=== PATIENT | male | born 1955 | race Caucasian/White ===

== ENCOUNTER → 2018-06-09 | Outpatient (CLI) | payer MEDICARE, BC ==
--- NOTE | 2018-06-09 15:00 | XR ---
Left elbow HISTORY: Left elbow pain and swelling 3 views of the left elbow Soft tissue swelling is noted at the dorsal aspect of the elbow, there is an enthesophyte at the inse rtion of the triceps tendon. Alignment and bone mineralization are normal. No fracture or dislocation . No sizable joint effusion. IMPRESSION: Correlate for olecranon bursitis.
== END | disposition home or self-care (01) ==
LOC: RADXRMAIN 10:51
PROVIDERS: ATTEND Midwife
DX: M25.522 Pain in left elbow (principal)

== ENCOUNTER → 2022-12-05 | Outpatient (CLI) | payer BC, MEDICARE ==
--- NOTE | 2022-12-05 12:50 | XR ---
EXAMINATION TYPE: XR finger RT DATE OF EXAM: 12/05/2022 COMPARISON: NONE HISTORY: Pain TECHNIQUE: Three views are submitted. FINDINGS: The osseous structures are intact. The joint spaces are preserved and there is no acute fracture or dislocation. IMPRESSION: 1. No definite acute fracture or dislocation if symptoms persist, follow-up study in 7 to 10 days wo uld be suggested
== END | disposition home or self-care (01) ==
LOC: RADXRMAIN 11:51
PROVIDERS: ATTEND Family Medicine
DX: M79.644 Pain in right finger(s) (principal)

== ENCOUNTER 2023-09-04 10:43 | Observation (INO) | payer MEDICARE ==
[2023-09-04] MEDS ORDERED: NITROGLYCERIN SL TABS 0.4 MG TAB SUBLINGUAL PRN ×2 (11:37→13:17)
--- NOTE | 2023-09-04 11:37 | ED ---
General Adult HPI - General Chief complaint: Recheck/Abnormal Lab/Rx Stated complaint: dr david tracking Time Seen by Provider: 09/04/23 10:45 Source: patient, RN notes reviewed, old records reviewed Limitations: no limitations - History of Present Illness Initial comments: This is a 67-year-old male who presents to the emergency department from the stress lab. Patient had a positive stress test and Dr. Burt to cardiology sent the patient to the emergency department immediately. Patient states during the test he had a little bit of chest discomfort but he currently has no chest discomfort no shortness of breath no diaphoretic episodes. Patient denies nausea vomiting. Patient is a diabetic with high cholesterol. Patient does not smoke and has no family history that he knows of. Patient denies any recent fever chills or cough. - Related Data Home Medications Medication Instructions Recorded Confirmed Atorvastatin [Lipitor] 10 mg PO DAILY 08/10/15 08/15/15 Cholecalciferol [Vitamin D3] 2,000 unit PO QAM 08/10/15 08/15/15 Cinnamon Bark [Cinnamon] 500 mg PO DAILY 08/10/15 08/15/15 Empagliflozin/Linagliptin 1 each PO QAM 08/10/15 08/15/15 [Glyxambi 25 mg-5 mg Tablet] Levothyroxine Sodium [Synthroid] 75 mcg PO DAILY 08/10/15 08/15/15 Multivitamins, Thera [Multivitamin] 1 tab PO DAILY 08/10/15 08/15/15 metFORMIN HCL [Glucophage] 500 mg PO BID 08/10/15 08/15/15 Allergies Allergy/AdvReac Type Severity Reaction Status Date / Time No Known Allergies Allergy Verified 09/04/23 10:53 Review of Systems ROS Statement: Those systems with pertinent positive or pertinent negative responses have been documented in the HPI. ROS Other: All systems not noted in ROS Statement are negative. Past Medical History Past Medical History: Diabetes Mellitus, Hyperlipidemia, Skin Disorder, Thyroid Disorder Additional Past Medical History / Comment(s): "dry skin" History of Any Multi-Drug Resistant Organisms: MRSA Date of last positivie culture/infection: ?2004 MDRO Source:: rt side of abdomen Past Surgical History: Cholecystectomy Additional Past Surgical History / Comment(s): cyst removed from side of abdomen, nasal surgery Past Anesthesia/Blood Transfusion Reactions: Postoperative Nausea & Vomiting (PONV) Additional Past Anesthesia/Blood Transfusion Reaction / Comment(s): ponv after last colonscopy Past Psychological History: No Psychological Hx Reported Smoking Status: Never smoker Past Alcohol Use History: Occasional Past Drug Use History: None Reported - Past Family History Mother Family Medical History: Cancer Father Family Medical History: Cancer General Exam - General Exam Comments Initial Comments: GENERAL: Patient is well-developed and well-nourished. Patient is nontoxic and well- hydrated and is in no acute distress. ENT: Neck is soft and supple. No significant lymphadenopathy is noted. Oropharynx is clear. Moist mucous membranes. Neck has full range of motion without eliciting any pain. EYES: The sclera were anicteric and conjunctiva were pink and moist. Extraocular movements were intact and pupils were equal round and reactive to light. Eyelids were unremarkable. PULMONARY: Unlabored respirations. Good breath sounds bilaterally. No audible rales rhonchi or wheezing was noted. CARDIOVASCULAR: There is a regular rate and rhythm without any murmurs gallops or rubs. ABDOMEN: Soft and nontender with normal bowel sounds. SKIN: Skin is clear with no lesions or rashes and otherwise unremarkable. NEUROLOGIC: Patient is alert and oriented x3. Cranial nerves II through XII are grossly intact. Motor and sensory are also intact. Normal speech, volume and content. Symmetrical smile. MUSCULOSKELETAL: Normal extremities with adequate strength and full range of motion. LYMPHATICS: No significant lymphadenopathy is noted PSYCHIATRIC: Normal psychiatric evaluation. Limitations: no limitations Course Vital Signs 09/04/23 10:51 Temperature 98 F Pulse Rate 74 Respiratory 18 Rate Blood Pressure 143/80 O2 Sat by Pulse 100 Oximetry Medical Decision Making - Medical Decision Making EKG is interpreted by myself. EKG shows sinus rhythm at 76 bpm parables 185 QRS is 109 QT interval 382 QTc is 412. Patient EKG shows no ST segment ovation or depression. Was pt. sent in by a medical professional or institution (, PA, HEAD KILN OPERATOR, urgent care, hospital, or prison...) When possible be specific @ -Patient was sent to the emergency department Dr. Burt Did you speak to anyone other than the patient for history (EMS, parent, family, police, friend...)? What history was obtained from this source @ -I spoke with Dr. Burt nurse practitioner. Did you review nursing and triage notes (agree or disagree)? Why? @ -I reviewed and agree with nursing and triage notes Were old charts reviewed (outside hosp., previous admission, EMS record, old EKG, old radiological studies, urgent care reports/EKG's, prison records)? Report findings @ -I reviewed prior EKGs prior lab work and prior radiological studies Differential Diagnosis (chest pain, altered mental status, abdominal pain women, abdominal pain men, vaginal bleeding, weakness, fever, dyspnea, syncope, headache, dizziness, GI bleed, back pain, seizure, CVA, palpatations, mental health, musculoskeletal)? @ -Differential Chest Pain: Stable Angina, Unstable Angina, STEMI, NSTEMI Aortic Dissection, Pneumothorax, Musculoskeletal, Esophageal Spasm GERD, Cholecystitis, Pancreatitis, Zoster, this is not meant to be an all-inclusive list. EKG interpreted by me (3pts min.). @ -As above X-rays interpreted by me (1pt min.). @ -Chest x-ray shows no acute abnormality CT interpreted by me (1pt min.). @ -None done U/S interpreted by me (1pt. min.). @ -None done What testing was considered but not performed or refused? (CT, X-rays, U/S, l abs)? Why? @ -None What meds were considered but not given or refused? Why? @ -None Did you discuss the management of the patient with other professionals (professionals i.e. , PA, HEAD KILN OPERATOR, lab, RT, psych nurse, social sciences instructor, divorce attorney, teacher, protocol officer, rn case management)? Give summary @ -Dr. Gallardo was contacted and he agreed to admit the patient. Was smoking cessation discussed for >3mins.? @ -No Was critical care preformed (if so, how long)? @ -No Were there social determinants of health that impacted care today? How? (Homelessness, low income, unemployed, alcoholism, drug addiction, transporta tion, low edu. Level, literacy, decrease access to med. care, half-way, rehab)? @ -No Was there de-escalation of care discussed even if they declined (Discuss DNR or withdrawal of care, Hospice)? DNR status @ -No What co-morbidities impacted this encounter? (DM, HTN, Smoking, COPD, CAD, Cancer, CVA, ARF, Chemo, Hep., AIDS, mental health diagnosis, sleep apnea, morbid obesity)? @ -None Was patient admitted / discharged? Hospital course, mention meds given and route, prescriptions, significant lab abnormalities, going to OR and other pertinent info. @ -Patient received aspirin Nitropaste in the emergency department. Patient was also started on heparin. Patient will be admitted to Dr. Littlejohn and cardiology will be consulted Undiagnosed new problem with uncertain prognosis? @ -No Drug Therapy requiring intensive monitoring for toxicity (Heparin, Nitro, Insulin, Cardizem)? @ -No Were any procedures done? @ -No Diagnosis/symptom? @ -Unstable angina Acute, or Chronic, or Acute on Chronic? @ -Acute Uncomplicated (without systemic symptoms) or Complicated (systemic symptoms)? @ -Complicated Side effects of treatment? @ -No Exacerbation, Progression, or Severe Exacerbation? @ -No Poses a threat to life or bodily function? How? (Chest pain, USA, CT, pneumonia, PE, COPD, DKA, ARF, appy, cholecystitis, CVA, Diverticulitis, Homicidal, Suicidal, threat to staff... and all critical care pts) @ -Yes this could lead to an CT and cause end organ dysfunction Disposition Clinical Impression: Unstable angina Disposition: ADMITTED IP TO THIS HOSP Referrals: Domenic Burt DO [STAFF PHYSICIAN] - 1-2 days Time of Disposition: 11:34
[2023-09-04] MEDS: HEPARIN SODIUM 1,000 UN/ML (10ML VL) IV ONE (11:49)
--- NOTE | 2023-09-04 11:50 | XR ---
EXAMINATION TYPE: XR chest 2V DATE OF EXAM: 09/04/2023 11:45 AM CLINICAL INDICATION:Male, 67 years old with history of Chest Pain; [facility] COMPARISON: Chest radiographs from 09/04/2023. TECHNIQUE: XR chest 2V Frontal and lateral views of the chest. FINDINGS: Lungs/Pleura: There is no evidence of pleural effusion, focal consolidation, or pneumothorax. Pulmonary vascularity: Unremarkable. Heart/mediastinum: Cardiomediastinal silhouette is unremarkable. Musculoskeletal: No acute osseous pathology. IMPRESSION: No acute cardiopulmonary disease/process.
[2023-09-04] MEDS: ASPIRIN 81 MG PO STA (11:53)
[2023-09-04] MEDS: NITROGLYCERIN OINT 1 INCH/GM PACKET TOPICAL STA (11:54)
[2023-09-04] MEDS: HEPARIN SOD,PORK IN 0.45% NACL 25,000 UNIT in 0.45% NACL 1 250ML.BAG IV SCH (11:57)
[2023-09-04 12:26] LABS: Basophils # (A) 0.1 k/uL (0-0.2); Basophils % (A) 1 %; Eosinophils # (A) 0.7 k/uL (0-0.7); Eosinophils % (A) 7 %; HCT 48.5 % (39.0-53.0); Lymphocytes # (A) 2.5 k/uL (1.0-4.8); Lymphocytes % (A) 26 %; MCH 30.9 pg (25.0-35.0); MCHC 33.1 g/dL (31.0-37.0); MCV 93.4 fL (80.0-100.0); Mean Platelet Volume 9.2; Monocytes # (A) 0.6 k/uL (0-1.0); Monocytes % (A) 6 %; Neutrophils # (A) 5.8 k/uL (1.3-7.7); Neutrophils % (A) 59 %; Platelet Count 267 k/uL (150-450); RBC 5.19 m/uL (4.30-5.90); RDW 12.4 % (11.5-15.5); WBC 9.8 k/uL (3.8-10.6)
[2023-09-04 12:34] LABS: ALT 38 U/L (4-49); AST 32 U/L (17-59); African American GFR (CKD) >90 (>60 ml/min/1.73 sqM); Albumin 4.5 g/dL (3.5-5.0); Alkaline Phosphatase 64 U/L (38-126); Anion Gap 10 mmol/L; Blood Urea Nitrogen 18 mg/dL (9-20); Calcium 9.6 mg/dL (8.4-10.2); Carbon Dioxide 25 mmol/L (22-30); Chloride 107 mmol/L (98-107); Glucose 139 mg/dL (74-99); Magnesium 1.8 mg/dL (1.6-2.3); Non-African American GFR(CKD) 81 (>60 ml/min/1.73 sqM); Potassium 4.9 mmol/L (3.5-5.1); Sodium 142 mmol/L (137-145); Total Bilirubin 0.5 mg/dL (0.2-1.3); Total Protein 7.5 g/dL (6.3-8.2)
[2023-09-04 12:51] LABS: INR 0.9 (<1.2); Prothrombin Time 10.4 sec (10.0-12.5)
[2023-09-04] MEDS ORDERED: DEXTROSE 50% SYRINGE 50 ML IVP PRN ×2 (12:53)
--- NOTE | 2023-09-04 12:55 | P.HPIM ---
History of Present Illness H&P Date: 09/04/23 History of present illness; patient is 67-year-old gentleman with past medical significant for hyperlipidemia, diabetes mellitus presented to the ER after being sent in for an abnormal stress test. Apparently patient was all right 2 weeks ago when while shoveling snow he started experiencing chest pain that was central in location, nonradiating, no aggravating or relieving factors associated with chest pain. There was no complaint of palpitation at the time. Patient did complain of shortness of breath at that time. There was no complaint nausea, vomiting abdominal pain at that time. Chest pain resolved on its own. Chest pain reoccurred after a few days while he was removing trash cans, this chest pain also resolved on its own. Yesterday patient went for his annual physical to his PCP office and he ordered an EKG and a stress test. This morning patient went for a stress test and while he was doing stress test there were some ischemic changes noticeable for which the distance learning technician referred him immediately to come to the ER and to be admitted. Initial lab work done in the ER showed WBC 9.8, hemoglobin 16, platelet count 267, sodium 142, calcium 4.9, BUN 18, creatinine 0.98, AST 32, ALT 38, troponin 0.012 EKG done in the ER showed heart rate of76 , no ST segment elevation or d epression seen, no T-wave inversions seen. Chest x-ray done in the ER no acute cardiopulmonary process Patient admitted to internal medicine service REVIEW OF SYSTEMS: CONSTITUTIONAL: No fever, no malaise, no fatigue. HEENT: No recent visual problems or hearing problems. Denied any sore throat. CARDIOVASCULAR: As mentioned above PULMONARY: As mentioned above GASTROINTESTINAL: No diarrhea, no nausea, no vomiting, no abdominal pain. NEUROLOGICAL: No headaches, no weakness, no numbness. HEMATOLOGICAL: Denies any bleeding or petechiae. GENITOURINARY: Denies any burning micturition, frequency, or urgency. MUSCULOSKELETAL/RHEUMATOLOGICAL: Denies any joint pain, swelling, or any muscle pain. ENDOCRINE: Denies any polyuria or polydipsia. The rest of the 14-point review of systems is negative. PHYSICAL EXAMINATION: GENERAL: The patient is alert and oriented x3, not in any acute distress. Well developed, well nourished. HEENT: Pupils are round and equally reacting to light. EOMI. No scleral icterus. No conjunctival pallor. Normocephalic, atraumatic. No pharyngeal erythema. No thyromegaly. CARDIOVASCULAR: S1 and S2 present. No murmurs, rubs, or gallops. PULMONARY: Chest is clear to auscultation, no wheezing or crackles. ABDOMEN: Soft, nontender, nondistended, normoactive bowel sounds. No palpable organomegaly. MUSCULOSKELETAL: No joint swelling or deformity. EXTREMITIES: No cyanosis, clubbing, or pedal edema. NEUROLOGICAL: Gross neurological examination did not reveal any focal deficits. SKIN: No rashes. Assessment and plan Acute coronary syndrome Abnormal stress test Diabetes mellitus Hyperlipidemia Hypothyroidism Monitor vital signs Monitor CBC Monitor CMP Continue telemetry monitoring Trend troponin Ordered 2D echo Start pharmacy to dose heparin Continue aspirin Resume Synthroid Monitor blood sugar levels, continue sliding scale insulin Cardiology consulted Labs and medication were reviewed.. Continue same treatment. Continue with symptomatic treatment. Resume home medication. Monitor labs and vitals. DVT and GI prophylaxis. Further recommendations as per clinical course of the patient Dictation was produced using [employer] dictation software. please excuse any grammatical, word or spelling errors. Past Medical History Past Medical History: Diabetes Mellitus, Hyperlipidemia, Skin Disorder, Thyroid Disorder Additional Past Medical History / Comment(s): "dry skin" History of Any Multi-Drug Resistant Organisms: MRSA Date of last positivie culture/infection: ?2004 MDRO Source:: rt side of abdomen Past Surgical History: Cholecystectomy Additional Past Surgical History / Comment(s): cyst removed from side of abdomen, nasal surgery Past Anesthesia/Blood Transfusion Reactions: Postoperative Nausea & Vomiting (PONV) Additional Past Anesthesia/Blood Transfusion Reaction / Comment(s): ponv after last colonscopy Past Psychological History: No Psychological Hx Reported Smoking Status: Never smoker Past Alcohol Use History: Occasional Past Drug Use History: None Reported - Past Family History Mother Family Medical History: Cancer Father Family Medical History: Cancer Medications and Allergies Home Medications Medication Instructions Recorded Confirmed Type Atorvastatin [Lipitor] 10 mg PO DAILY 08/10/15 09/04/23 History Levothyroxine Sodium [Synthroid] 75 mcg PO DAILY 08/10/15 09/04/23 History Empagliflozin [Jardiance] 25 mg PO DAILY 09/04/23 09/04/23 History Gabapentin [Neurontin] 100 mg PO BID 09/04/23 09/04/23 History Glimepiride [Amaryl] 1 mg PO BID 09/04/23 09/04/23 History Nitroglycerin Sl Tabs [Nitrostat] 0.4 mg SL Q5M PRN 09/04/23 09/04/23 History metFORMIN HCL 1,000 mg PO BID 09/04/23 09/04/23 History Allergies Allergy/AdvReac Type Severity Reaction Status Date / Time No Known Allergies Allergy Verified 09/04/23 12:34 Physical Exam Vitals: Vital Signs Temp Pulse Resp BP Pulse Ox 09/04/23 10:51 98 F 74 18 143/80 100 Intake and Output 09/03/23 09/04/23 09/04/23 22:59 06:59 14:59 Other: Weight 87.543 kg Results CBC & Chem 7: 09/04/23 11:10 09/04/23 11:10 Labs: Abnormal Lab Results - Last 24 Hours (Table) 09/04/23 Range/Units 11:10 Glucose 139 H (74-99) mg/dL
[2023-09-04] MEDS ORDERED: ALPRAZolam 0.5 MG TAB PO PRN (13:17)
[2023-09-04] MEDS ORDERED: ALPRAZolam 0.25 MG TAB PO PRN (13:17)
--- NOTE | 2023-09-04 13:17 | P.CRDCN ---
History of Present Illness History of present illness: HISTORY OF PRESENT ILLNESS: This is a 67-year-old male with a past medical history significant for hypothyroidism, hyperlipidemia and diabetes. Patient does not follow with a asbestos textile supervisor. We have been asked to see the patient in consultation for unstable angina. Patient examined at the bedside. Patient was scheduled for an outpatient stress echocardiogram today. Patient states a few weeks ago he was using a snowblower to remove snow from his neighbor's house when he began to have chest discomfort. He states that he went home and rested and had resolution of his pain. He states a few days ago he was at one of his properties and he was doing some work like pulling some weeds and he began to have chest discomfort again. He states the pain was relieved with rest. He denied having any radiation of the pain. He does report mild shortness of breath and nausea with the discomfort. Patient presented this morning and underwent stress echocardiogram revealing inducible anterior ischemia as well as ST elevation in aVR. The patient did also experience chest discomfort with activity that was relieved with rest. His EKG abnormalities did resolve in the recovery phase. He was directed to the emergency room. The patient currently denies any chest pain or pressure. He denies any shortness of breath. He is a non-smoker. He denies any family history of coronary artery disease. DIAGNOSTICS: - EKG reveals sinus mechanism with no signs of acute ischemia - Chest xray negative for acute process - Laboratory data: WBC 9.8. Hemoglobin 16.0. Platelet count 267. Sodium 142. Potassium 4.9. BUN 18. Creatinine 0.98. Magnesium 1.8. - Current home cardiac medications include Lipitor 10 mg daily. REVIEW OF SYSTEMS: At the time of my exam: CONSTITUTIONAL: Denies fever or chills. HEENT: Denies blurred vision, vision changes, or eye pain. Denies hemoptysis CARDIOVASCULAR: Denies chest pain. Denies orthopnea. Denies PND. Denies palpitations RESPIRATORY: Denies shortness of breath. GASTROINTESTINAL: Denies abdominal pain. Denies nausea or vomiting. HEMATOLOGIC: Denies bleeding disorders. GENITOURINARY: Denies any blood in urine. SKIN: Denies pruitis. Denies rash. PHYSICAL EXAM: VITAL SIGNS: Reviewed. GENERAL: Well-developed in no acute distress. HEENT: Head is normocephalic. Pupils are equal, round. Sclerae anicteric. Mucous membranes of the mouth are moist. Neck supple. No JVD or thyromegaly LUNGS: Respirations even and unlabored. Lungs essentially clear to auscultation bilaterally. HEART: Regular rate and rhythm. S1 and S2 heard. ABDOMEN: Soft. Nondistended. Nontender. EXTREMITIES: Normal range of motion. No clubbing or cyanosis. Peripheral pulses intact. No lower extremity edema NEUROLOGIC: Awake and alert. Oriented x 3. ASSESSMENT: Exertional chest pain x 1 month Abnormal stress echocardiogram revealing inducible anterior ischemia as well as ST elevation in aVR Hyperlipidemia Diabetes Hypothyroidism PLAN: Obtain 2D echo to assess cardiac structure and function Begin aspirin 81 mg daily Increase atorvastatin to 40 mg at night Begin metoprolol tartrate 25 mg twice a day N.p.o. at midnight Patient to undergo cardiac catheterization tomorrow with Dr. Burt Plan discussed in detail with patient and his at the bedside. All questions answered. Further recommendations pending patient course Nurse practitioner note has been reviewed by physician. Signing provider agrees with the documented findings, assessment, and plan of care documented by HEALTH PLAN SPECIALIST as a scribe. Past Medical History Past Medical History: Diabetes Mellitus, Hyperlipidemia, Skin Disorder, Thyroid Disorder Additional Past Medical History / Comment(s): "dry skin" History of Any Multi-Drug Resistant Organisms: MRSA Date of last positivie culture/infection: ?2004 MDRO Source:: rt side of abdomen Past Surgical History: Cholecystectomy Additional Past Surgical History / Comment(s): cyst removed from side of abdomen, nasal surgery Past Anesthesia/Blood Transfusion Reactions: Postoperative Nausea & Vomiting (PONV) Additional Past Anesthesia/Blood Transfusion Reaction / Comment(s): ponv after last colonscopy Past Psychological History: No Psychological Hx Reported Smoking Status: Never smoker Past Alcohol Use History: Occasional Past Drug Use History: None Reported - Past Family History Mother Family Medical History: Cancer Father Family Medical History: Cancer Medications and Allergies Home Medications Medication Instructions Recorded Confirmed Type Atorvastatin [Lipitor] 10 mg PO DAILY 08/10/15 09/04/23 History Levothyroxine Sodium [Synthroid] 75 mcg PO DAILY 08/10/15 09/04/23 History Empagliflozin [Jardiance] 25 mg PO DAILY 09/04/23 09/04/23 History Gabapentin [Neurontin] 100 mg PO BID 09/04/23 09/04/23 History Glimepiride [Amaryl] 1 mg PO BID 09/04/23 09/04/23 History Nitroglycerin Sl Tabs [Nitrostat] 0.4 mg SL Q5M PRN 09/04/23 09/04/23 History metFORMIN HCL 1,000 mg PO BID 09/04/23 09/04/23 History Allergies Allergy/AdvReac Type Severity Reaction Status Date / Time No Known Allergies Allergy Verified 09/04/23 12:34 Physical Exam Vitals: Vital Signs Temp Pulse Resp BP Pulse Ox 09/04/23 10:51 98 F 74 18 143/80 100 Intake and Output 09/03/23 09/04/23 09/04/23 22:59 06:59 14:59 Other: Weight 87.543 kg Results 09/04/23 11:10 09/04/23 11:10 CBC 09/04/23 Range/Units 11:10 WBC 9.8 (3.8-10.6) k/uL RBC 5.19 (4.30-5.90) m/uL Hgb 16.0 (13.0-17.5) gm/dL Hct 48.5 (39.0-53.0) % Plt Count 267 (150-450) k/uL Current Medications Generic Name Dose Route Start Last Admin Trade Name Freq PRN Reason Stop Dose Admin Aspirin 325 mg 09/05/23 09:00 Aspirin 325 Mg Tab PO DAILY ADOLFO Heparin Sodium/Sodium Chloride 250 mls @ 9.98 mls/hr 09/04/23 11:45 09/04/23 11:57 25,000 unit/ Sodium Chloride IV 11.4 units/kg/hr .Q24H ADOLFO 9.98 mls/hr Administration Protocol 11.4 UNITS/KG/HR Nitroglycerin 0.4 mg 09/04/23 11:37 Nitroglycerin Sl Tabs 0.4 Mg Tab SUBLINGUAL Q5M PRN Chest Pain Intake and Output 09/03/23 09/04/23 09/04/23 22:59 06:59 14:59 Other: Weight 87.543 kg Patient Weight 09/05/23 06:59 Weight 87.543 kg 09/04/23 11:10
[2023-09-04 14:12] LABS: Glucose,Whole Blood 122 mg/dL (70-110)
[2023-09-04 17:10] LABS: Glucose,Whole Blood 108 mg/dL (70-110)
[2023-09-04] MEDS: INSULIN ASPART (NovoLOG) 100 UNIT/ML VIAL SQ SCH (17:14)
[2023-09-04] MEDS: HEPARIN SODIUM 1,000 UN/ML (10ML VL) IV PRN (18:36)
[2023-09-04 21:54] LABS: Glucose,Whole Blood 105 mg/dL (70-110)
[2023-09-04] MEDS: GABAPENTIN 100 MG CAP PO SCH (22:22)
[2023-09-04] MEDS: METOPROLOL TARTRATE 25 MG TAB PO SCH (22:22)
[2023-09-05] MEDS: ATORVASTATIN 80 MG TAB PO ONE (05:45)
[2023-09-05] MEDS: LEVOTHYROXINE 75 MCG TAB PO SCH (05:45)
[2023-09-05] MEDS: SODIUM CHLORIDE 0.9% 1,000 ML in EMPTY BAG 1 BAG IV SCH ×2 (05:45→20:39)
[2023-09-05] MEDS: ASPIRIN 325 MG TAB PO ONE (05:45)
[2023-09-05] MEDS: ASPIRIN 81 MG PO SCH (05:46)
[2023-09-05] MEDS: ATORVASTATIN 10 MG TAB PO SCH (05:46)
[2023-09-05] MEDS ORDERED: HEPARIN SODIUM,PORCINE 10,000 UNIT in SODIUM CHLORIDE 0.9% 1,000 ML IRRIGATION PRN (07:00)
[2023-09-05] MEDS ORDERED: HEPARIN SODIUM,PORCINE (1 ML) 2,500 UNIT in SODIUM CHLORIDE 0.9% 250 ML IRRIGATION PRN (07:00)
[2023-09-05 08:32] LABS: Glucose,Whole Blood 130 mg/dL (70-110)
[2023-09-05] MEDS ORDERED: ATORVASTATIN 10 MG TAB PO SCH (09:00)
[2023-09-05] MEDS ORDERED: ASPIRIN 325 MG TAB PO SCH (09:00)
[2023-09-05 11:20] LABS: Chol/HDL Ratio 3.54 Ratio; LDL Cholesterol,Calculated 63.6 mg/dL (0.0-131.0)
--- NOTE | 2023-09-05 12:14 | CA ---
Transthoracic Echo Report Name: Chuck Hope Age: 67 Gender: M : 1955 Exam Date: 09/05/2023 09:42 Exam Location: [facility] Ht (in): 69 Wt (lb): 193 Ordering Physician: Sobia Lr Attending/Referring Phys: [id number], Adeline Superannuation Clerk Juan Miguel Ragland RDCS Procedure CPT: Indications: CP, abnormal stress test Cardiac Hx: Technical Quality: Fair Contrast 1: Total Dose (mL): Contrast 2: Total Dose (mL): MEASUREMENTS (Male / Female) Normal Values 2D ECHO LV Diastolic Diameter PLAX 4.5 cm 4.2 - 5.9 / 3.9 - 5.3 cm LV Systolic Diameter PLAX 2.9 cm IVS Diastolic Thickness 0.8 cm 0.6 - 1.0 / 0.6 - 0.9 cm LVPW Diastolic Thickness 1.0 cm 0.6 - 1.0 / 0.6 - 0.9 cm LV Relative Wall Thickness 0.4 Aortic Root Diameter 3.6 cm LA Systolic Diameter LX 3.8 cm 3.0 - 4.0 / 2.7 - 3.8 cm DOPPLER AV Peak Velocity 128.4 cm/s AV Peak Gradient 6.6 mmHg AV Mean Velocity 95.3 cm/s AV Mean Gradient 3.9 mmHg AV Velocity Time Integral 26.4 cm LVOT Peak Velocity 58.1 cm/s LVOT Peak Gradient 1.4 mmHg LVOT Velocity Time Integral 11.2 cm Mitral E Point Velocity 64.2 cm/s Mitral A Point Velocity 80.5 cm/s Mitral E to A Ratio 0.8 MV Deceleration Time 254.1 ms MV E' Velocity 6.2 cm/s Mitral E to MV E' Ratio 10.3 PV Peak Velocity 92.6 cm/s PV Peak Gradient 3.4 mmHg FINDINGS Left Ventricle Left ventricular ejection fraction is estimated at 55-60 %. Right Ventricle Normal right ventricular size and function. Right Atrium Normal right atrial size. Left Atrium Normal left atrial size. Mitral Valve No mitral stenosis, regurgitation or prolapse. Aortic Valve Trileaflet aortic valve. Tricuspid Valve Trace tricuspid regurgitation. Pulmonic Valve Structurally normal pulmonic valve. Pericardium Normal pericardium. Aorta Normal size aortic root and proximal ascending aorta. CONCLUSIONS Left ventricular ejection fraction 55-60% Trace tricuspid regurgitation No pericardial effusion Previewed by: Dr. Domenic Burt DO (Electronically Signed) Final Date: 05 September 2023 12:13
[2023-09-05 12:38] LABS: Glucose,Whole Blood 109 mg/dL (70-110)
--- NOTE | 2023-09-05 13:10 | P.PN ---
Subjective Progress Note Date: 09/05/23 patient is 67-year-old gentleman with past medical significant for hyperlipidemia, diabetes mellitus presented to the ER after being sent in for an abnormal stress test. Apparently patient was all right 2 weeks ago when while shoveling snow he started experiencing chest pain that was central in location, nonradiating, no aggravating or relieving factors associated with chest pain. There was no complaint of palpitation at the time. Patient did complain of shortness of breath at that time. There was no complaint nausea, vomiting abdominal pain at that time. Chest pain resolved on its own. Chest pain reoccurred after a few days while he was removing trash cans, this chest pain also resolved on its own. Yesterday patient went for his annual physical to his PCP office and he ordered an EKG and a stress test. This morning patient went for a stress test and while he was doing stress test there were some ischemic changes noticeable for which the circus agent referred him immediately to come t o the ER and to be admitted. Initial lab work done in the ER showed WBC 9.8, hemoglobin 16, platelet count 267, sodium 142, calcium 4.9, BUN 18, creatinine 0.98, AST 32, ALT 38, troponin 0.012 EKG done in the ER showed heart rate of76 , no ST segment elevation or depression seen, no T-wave inversions seen. Chest x-ray done in the ER no acute cardiopulmonary process Patient admitted to internal medicine service 09/05. Patient seen and examined. No further episodes of chest pain. Currently n.p.o., going for cardiac cath today REVIEW OF SYSTEMS: CONSTITUTIONAL: No fever, no malaise,. CARDIOVASCULAR: No chest pain, no palpitations, no syncope. PULMONARY: No shortness of breath, no cough, GASTROINTESTINAL: No diarrhea, no nausea, no vomiting, no abdominal pain. NEUROLOGICAL: No headaches, no weakness, PHYSICAL EXAMINATION: GENERAL: The patient is alert and oriented x3, not in any acute distress. Well developed, well nourished. HEENT: Pupils are round and equally reacting to light. EOMI. No scleral icterus. No conjunctival pallor. Normocephalic, atraumatic. No pharyngeal erythema. No thyromegaly. CARDIOVASCULAR: S1 and S2 present. No murmurs, rubs, or gallops. PULMONARY: Chest is clear to auscultation, no wheezing or crackles. ABDOMEN: Soft, nontender, nondistended, normoactive bowel sounds. No palpable organomegaly. MUSCULOSKELETAL: No joint swelling or deformity. EXTREMITIES: No cyanosis, clubbing, or pedal edema. NEUROLOGICAL: Gross neurological examination did not reveal any focal deficits. SKIN: No rashes. Assessment and plan Exertional chest pain Acute coronary syndrome Abnormal stress test Diabetes mellitus Hyperlipidemia Hypothyroidism Monitor vital signs Monitor CBC Monitor CMP Continue telemetry monitoring Trend troponin Ordered 2D echo Continue pharmacy to dose heparin Continue aspirin Continue Synthroid Monitor blood sugar levels, continue sliding scale insulin Cardiology following, currently n.p.o., going for cardiac cath today Labs and medication were reviewed.. Continue same treatment. Continue with symptomatic treatment. Resume home medication. Monitor labs and vitals. DVT and GI prophylaxis. Further recommendations as per clinical course of the patient Dictation was produced using [employer] dictation software. please excuse any grammatical, word or spelling errors. Objective - Vital Signs Vital signs: Vital Signs Temp 97.5 F L 09/05/23 07:34 Pulse 96 09/05/23 07:34 Resp 16 09/05/23 07:34 BP 114/69 09/05/23 07:34 Pulse Ox 99 09/05/23 07:34 FiO2 Intake & Output 09/04/23 09/05/23 09/05/23 18:59 06:59 18:59 Intake Total 66.866 Balance 66.866 Weight 87.543 kg 87.543 kg Intake: Intake, IV Titration 66.866 Amount Heparin Sod,Pork in 0.45% 66.866 NaCl 25,000 unit In 0.45 % NaCl 1 250ml.bag @ 11.4 UNITS/KG/HR 9.98 mls/hr IV .Q24H ADOLFO Rx#: [id number] Other: Voiding Method Urinal Toilet # Voids 1 1 - Labs CBC & Chem 7: 09/04/23 11:10 09/04/23 11:10 Labs: Abnormal Lab Results - Last 24 Hours (Table) 09/04/23 09/04/23 09/05/23 Range/Units 14:11 17:42 00:56 APTT 36.2 H 51.5 H (22.0-30.0) sec POC Glucose (mg/dL) 122 H (70-110) mg/dL Hemoglobin A1c (<=6.0) % HDL Cholesterol (40.00-60.00) mg/dL 09/05/23 09/05/23 09/05/23 Range/Units 07:03 07:03 07:03 APTT 40.1 H (22.0-30.0) sec POC Glucose (mg/dL) (70-110) mg/dL Hemoglobin A1c 7.3 H (<=6.0) % HDL Cholesterol 35.60 L (40.00-60.00) mg/dL 09/05/23 Range/Units 08:24 APTT (22.0-30.0) sec POC Glucose (mg/dL) 130 H (70-110) mg/dL Hemoglobin A1c (<=6.0) % HDL Cholesterol (40.00-60.00) mg/dL
[2023-09-05] MEDS ORDERED: fentaNYL (PF) 50 MCG/ML 2 ML AMP ONE (14:46)
[2023-09-05] MEDS ORDERED: VERAPAMIL 2.5 MG/ML 2 ML AMP ONE (14:46)
[2023-09-05] MEDS ORDERED: LIDOCAINE 1% INJ 10MG/ML (20 ML MDV) ONE (14:46)
[2023-09-05] MEDS ORDERED: HEPARIN SODIUM 1,000 UN/ML (10ML VL) ONE (14:46)
[2023-09-05] MEDS: MIDAZOLAM 2 MG/2 ML VIAL IVP ONE (15:10)
[2023-09-05] MEDS: HEPARIN SODIUM 1,000 UN/ML (10ML VL) IVP ONE (15:10)
[2023-09-05] MEDS: fentaNYL (PF) 50 MCG/1 ML VIAL IVP ONE (15:10)
[2023-09-05] MEDS: LIDOCAINE 1% INJ 10MG/ML (20 ML MDV) SQ ONE (15:11)
[2023-09-05] MEDS: VERAPAMIL SYRINGE (5 MG/10 ML) INTRAARTER ONE (15:12)
[2023-09-05] MEDS ORDERED: TICAGRELOR 90 MG TAB ONE (15:22)
[2023-09-05] MEDS: TICAGRELOR 90 MG TAB PO ONE (15:24)
[2023-09-05] MEDS: NITROGLYCERIN 1000MCG/10ML SYRINGE INTRACORON ONE (15:36)
[2023-09-05] MEDS: IOPAMIDOL-370 100ML BTL INJ ONE (15:39)
[2023-09-05 17:34] LABS: Glucose,Whole Blood 214 mg/dL (70-110)
[2023-09-05] MEDS ORDERED: ATROPINE SULFATE 0.1 MG/ML 10ML SYRINGE IV PRN (18:45)
[2023-09-05] MEDS ORDERED: ZOLPIDEM 5 MG TAB PO PRN (18:45)
[2023-09-05] MEDS ORDERED: RX INFO: IV CONTRAST WAS GIVEN 1 EACH MISC MISCELLANE PRN (18:45)
[2023-09-05] MEDS ORDERED: MAG HYDROX/AL HYDROX/SIMETH 30 ML CUP PO PRN (18:45)
[2023-09-05 20:15] LABS: Glucose,Whole Blood 182 mg/dL (70-110)
[2023-09-05] MEDS: TICAGRELOR 90 MG TAB PO SCH (20:43)
--- NOTE | 2023-09-05 21:02 | P.PRCINT ---
Percutaneous Coronary Int. - Percutaneous Coronary Intervention Percutaneous Coronary Intervention: PROCEDURES PERFORMED: Left heart catheterization, bilateral coronary angiography, ultrasound guided arterial access, PCI mid LAD with a 3.0 x 12 mm Xience ELENA, post dilated with a 3.25mm NC balloon, IVUS LAD INDICATION: Unstable angina, abnormal stress test with anterior ischemia CONSENT:I have discussed the risks, benefits and alternative therapies for the above-mentioned procedure and for both sedation/analgesia as well as necessary blood product administration, if indicated, as they pertain to this patient. The patient has indicated understanding and acceptance of the risks and procedures discussed. PROCEDURE: After the risks, benefits and alternatives of the above mentioned procedure explained in detail with the patient, informed consent was obtained. Patient was taken to the catheterization lab and prepped and draped in usual fashion. Ultrasound guidance was used to assess for arterial access. 1% lidocaine was used to anesthetize the right radial artery. A 6-Rwandan sheath was placed in the right radial artery using modified Seldinger technique and ultrasound guidance. Left coronary angiography was performed with a 5-Rwandan JL 3.5 catheter and right coronary angiography was performed with a 5-Rwandan FR5 catheter in various views. A 5-Rwandan FR5 catheter was inserted into the left ventricle and pressure measurements were obtained. The decision was made to perform PCI of LAD. A 6-Rwandan CLS 3.5 guide was used to engage the left main. Heparin was given. A 0.014 BMW wire was advanced to the distal LAD. Predilation was performed with a 2.5 x 8 mm balloon. Next intervascular ultrasound was performed which showed diffuse mild atherosclerosis with more focal plaque of the mid LAD and reference vessel 3.25 mm proximally and 3.0 mm distally. Therefore a 3.0 x 12 mm Xience ELENA was placed in the mid LAD. The proximal portion of the stent was postdilated with a 3.25 mm noncompliant balloon. Repeat intravascular ultrasound was performed which showed excellent stent apposition and no residual stenosis. Final angiograms were performed. Preintervention there was 99% stenosis and DANIELITO-3 flow and postintervention there was 0% stenosis and DANIELITO-3 flow. The right radial sheath was removed and a TR band was placed with hemostasis achieved. The patient tolerated the procedure well. Patient was transported back to the post catheterization holding area in stable condition. Conscious Sedation: Patient was monitored under the direct supervision of myself for conscious sedation using Versed and fentanyl for a total duration of 33 minutes HEMODYNAMICS: Aorta: 145/81 LV: 138/3, LVEDP 15 SELECTIVE CORONARY ARTERIOGRAPHY: LEFT MAIN: The left main is a large caliber vessel which bifurcates into the LAD and circumflex. There is no significant stenosis. LEFT ANTERIOR DESCENDING CORONARY ARTERY: LAD is a large caliber vessel which wraps around to the apex. There is a mid LAD 99% stenosis with what appears to be ulcerated plaque, as well as mid to distal diffuse 20% stenosis. LEFT CIRCUMFLEX CORONARY ARTERY: Left circumflex is a moderate caliber vessel. OM1 has a 50-60% stenosis and the AV groove circumflex has 20-30% stenosis. RIGHT CORONARY ARTERY: The right coronary artery is a moderate caliber vessel which gives off a PDA and PLV branch and is the dominant vessel. There is a mid RCA 50% stenosis and otherwise mild luminal irregularities. FINAL IMPRESSION: 1. CAD as described above including 99% mid LAD, 50-60% OM1, 50% mid RCA stenosis. 2. S/p PCI mid LAD with a 3.0 x 12 mm Xience ELENA, post dilated with a 3.25mm NC balloon 3. Normal left sided filling pressures PLAN: 1. Aggressive risk factor modification per most recent ACC/AHA guidelines. 2. Continue dual at that platelets with aspirin and Brillinta for 12 months
[2023-09-06 06:03] LABS: Glucose,Whole Blood 143 mg/dL (70-110)
[2023-09-06 07:50] LABS: African American GFR (CKD) >90 (>60 ml/min/1.73 sqM); Non-African American GFR(CKD) 89 (>60 ml/min/1.73 sqM)
[2023-09-06 08:00] VITALS: BP 100/56; PULSE 64; RESP 18; TEMP 97.8
--- NOTE | 2023-09-06 10:03 | P.PN ---
Subjective HISTORY OF PRESENT ILLNESS: This is a 67-year-old male with a past medical history significant for hypothyroidism, hyperlipidemia and diabetes. Patient does not follow with a inventory associate. We have been asked to see the patient in consultation for unstable angina. Patient examined at the bedside. Patient was scheduled for an outpatient stress echocardiogram today. Patient states a few weeks ago he was using a snowblower to remove snow from his neighbor's house when he began to have chest discomfort. He states that he went home and rested and had resolution of his pain. He states a few days ago he was at one of his properties and he was doing some work like pulling some weeds and he began to have chest discomfort again. He states the pain was relieved with rest. He denied having any radiation of the pain. He does report mild shortness of breath and nausea with the discomfort. Patient presented this morning and underwent stress echocardiogram revealing inducible anterior ischemia as well as ST elevation in aVR. The patient did also experience chest discomfort with activity that was relieved with rest. His EKG abnormalities did resolve in the recovery phase. He was directed to the emergency room. The patient currently denies any chest pain or pressure. He denies any shortness of breath. He is a non-smoker. He denies any family history of coronary artery disease. DIAGNOSTICS: - EKG reveals sinus mechanism with no signs of acute ischemia - Chest xray negative for acute process - Laboratory data: WBC 9.8. Hemoglobin 16.0. Platelet count 267. Sodium 142. Potassium 4.9. BUN 18. Creatinine 0.98. Magnesium 1.8. - Current home cardiac medications include Lipitor 10 mg daily. 09/06/2023 Patient is status postcardiac catheterization revealing 99% mid LAD, 50 to 60% OM1, and 50% mid RCA stenosis. Patient underwent stenting of the mid LAD. Patient examined this morning at the bedside. Patient denies any further episodes of chest pain or pressure. He denies any shortness of breath. Vital signs are stable. Echocardiogram revealing ejection fraction 55 to 60% PHYSICAL EXAM: VITAL SIGNS: Reviewed. GENERAL: Well-developed in no acute distress. HEENT: Head is normocephalic. Pupils are equal, round. Sclerae anicteric. Mucous membranes of the mouth are moist. Neck supple. No JVD or thyromegaly LUNGS: Respirations even and unlabored. Lungs essentially clear to auscultation bilaterally. HEART: Regular rate and rhythm. S1 and S2 heard. ABDOMEN: Soft. Nondistended. Nontender. EXTREMITIES: Normal range of motion. No clubbing or cyanosis. Peripheral pulses intact. No lower extremity edema NEUROLOGIC: Awake and alert. Oriented x 3. ASSESSMENT: Exertional chest pain x 1 month Abnormal stress echocardiogram revealing inducible anterior ischemia as well as ST elevation in aVR Status post cardiac catheterization revealing triple-vessel coronary artery disease with stenting of the mid LAD Hyperlipidemia Diabetes Hypothyroidism PLAN: Continue dual antiplatelet therapy with aspirin and Brilinta Continue high intensity statin Continue additional cardiac medications Patient is stable for discharge home today from a cardiac standpoint He is to follow-up postdischarge with Dr. Burt Nurse practitioner note has been reviewed by physician. Signing provider agrees with the documented findings, assessment, and plan of care documented by APPEALS RN as a scribe. Objective - Vital Signs Vital signs: Vital Signs Temp 97.8 F 09/06/23 07:00 Pulse 64 09/06/23 07:00 Resp 18 09/06/23 07:00 BP 100/56 09/06/23 07:00 Pulse Ox 97 09/06/23 07:00 FiO2 Intake & Output 09/05/23 09/06/23 09/06/23 18:59 06:59 18:59 Intake Total 200 Balance 200 Intake: IV 200 Other: Voiding Method Toilet Toilet # Voids 1 2 - Labs CBC & Chem 7: 09/04/23 11:10 09/06/23 06:39 Labs: Abnormal Lab Results - Last 24 Hours (Table) 09/05/23 09/05/23 09/05/23 Range/Units 07:03 07:03 17:33 POC Glucose (mg/dL) 214 H (70-110) mg/dL Hemoglobin A1c 7.3 H (<=6.0) % HDL Cholesterol 35.60 L (40.00-60.00) mg/dL 09/05/23 09/06/23 Range/Units 20:13 06:02 POC Glucose (mg/dL) 182 H 143 H (70-110) mg/dL Hemoglobin A1c (<=6.0) % HDL Cholesterol (40.00-60.00) mg/dL
[2023-09-06 12:21] LABS: Glucose,Whole Blood 174 mg/dL (70-110)
--- NOTE | 2023-09-06 12:33 | P.DS ---
Providers Date of admission: 09/04/23 11:37 Expected date of discharge: 09/06/23 Attending physician: Cory Gallardo MD Consults: 09/04/23 11:37 Consult Physician Urgent Consulting Provider: Tam Cabrera Consult Reason/Comments: Unstable angina Do you want consulting provider notified?: Yes 09/05/23 18:45 Consult Physician Routine Consulting Provider: Tam Cabrera Consult Reason/Comments: Post Interventional Patient Do you want consulting provider notified?: Already Contacted Primary care physician: Mitchell Benz Hospital Course: Discharge diagnoses; Exertional chest pain Acute coronary syndrome Abnormal stress echocardiogram revealing inducible anterior ischemia as well as ST elevation in aVR Status post cardiac catheterization revealing triple-vessel coronary artery disease with stenting of the mid LAD Diabetes mellitus Hyperlipidemia Hypothyroidism Hospital course; patient is 67-year-old gentleman with past medical significant for hyperlipi demia, diabetes mellitus presented to the ER after being sent in for an abnormal stress test. Apparently patient was all right 2 weeks ago when while shoveling snow he started experiencing chest pain that was central in location, nonradiating, no aggravating or relieving factors associated with chest pain. There was no complaint of palpitation at the time. Patient did complain of shortness of breath at that time. There was no complaint nausea, vomiting abdominal pain at that time. Chest pain resolved on its own. Chest pain reoccurred after a few days while he was removing trash cans, this chest pain also resolved on its own. Yesterday patient went for his annual physical to his PCP office and he ordered an EKG and a stress test. This morning patient went for a stress test and while he was doing stress test there were some ischemic changes noticeable for which the clinical trials specialist referred him immediately to come to the ER and to be admitted. Initial lab work done in the ER showed WBC 9.8, hemoglobin 16, platelet count 267, sodium 142, calcium 4.9, BUN 18, creatinine 0.98, AST 32, ALT 38, troponin 0.012 EKG done in the ER showed heart rate of76 , no ST segment elevation or depre ssion seen, no T-wave inversions seen. Chest x-ray done in the ER no acute cardiopulmonary process Patient admitted to internal medicine service 09/05. Patient seen and examined. No further episodes of chest pain. Currently n.p.o., going for cardiac cath today 09/06. Patient seen and examined. S/p cardiac with PCI mid LAD with a 3.0 x 12 mm Xience ELENA, post dilated with a 3.25mm NC balloon. Being discharged on dual antiplatelet therapy. Outpatient follow-up with cardiology PHYSICAL EXAMINATION: GENERAL: The patient is alert and oriented x3, not in any acute distress. Well developed, well nourished. HEENT: Pupils are round and equally reacting to light. EOMI. No scleral icterus. No conjunctival pallor. Normocephalic, atraumatic. No pharyngeal erythema. No thyromegaly. CARDIOVASCULAR: S1 and S2 present. No murmurs, rubs, or gallops. PULMONARY: Chest is clear to auscultation, no wheezing or crackles. ABDOMEN: Soft, nontender, nondistended, normoactive bowel sounds. No palpable organomegaly. MUSCULOSKELETAL: No joint swelling or deformity. EXTREMITIES: No cyanosis, clubbing, or pedal edema. NEUROLOGICAL: Gross neurological examination did not reveal any focal deficits. SKIN: No rashes. Dictation was produced using [employer] dictation software. please excuse any grammatical, word or spelling errors. Patient Condition at Discharge: Good Plan - Discharge Summary New Discharge Prescriptions: New Ticagrelor [Brilinta] 90 mg PO BID #180 tab Atorvastatin [Lipitor] 40 mg PO HS #90 tablet Aspirin 81 mg PO DAILY #90 tab Metoprolol Tartrate [Lopressor] 25 mg PO BID #180 tab Nitroglycerin Sl Tabs [Nitrostat] 0.4 mg SUBLINGUAL Q5M PRN #100 tab PRN Reason: Chest Pain Continue Levothyroxine Sodium [Synthroid] 75 mcg PO DAILY Gabapentin [Neurontin] 100 mg PO BID metFORMIN HCL 1,000 mg PO BID Glimepiride [Amaryl] 1 mg PO BID Nitroglycerin Sl Tabs [Nitrostat] 0.4 mg SL Q5M PRN PRN Reason: Chest Pain Empagliflozin [Jardiance] 25 mg PO DAILY Discontinued Atorvastatin [Lipitor] 10 mg PO DAILY Discharge Medication List Levothyroxine Sodium [Synthroid] 75 mcg PO DAILY 08/10/15 [History] Empagliflozin [Jardiance] 25 mg PO DAILY 09/04/23 [History] Gabapentin [Neurontin] 100 mg PO BID 09/04/23 [History] Glimepiride [Amaryl] 1 mg PO BID 09/04/23 [History] Nitroglycerin Sl Tabs [Nitrostat] 0.4 mg SL Q5M PRN 09/04/23 [History] metFORMIN HCL 1,000 mg PO BID 09/04/23 [History] Aspirin 81 mg PO DAILY #90 tab 09/06/23 [Rx] Atorvastatin [Lipitor] 40 mg PO HS #90 tablet 09/06/23 [Rx] Metoprolol Tartrate [Lopressor] 25 mg PO BID #180 tab 09/06/23 [Rx] Nitroglycerin Sl Tabs [Nitrostat] 0.4 mg SUBLINGUAL Q5M PRN #100 tab 09/06/23 [Rx] Ticagrelor [Brilinta] 90 mg PO BID #180 tab 09/06/23 [Rx] Follow up Appointment(s)/Referral(s): Domenic Burt DO [STAFF PHYSICIAN] - 09/12/23 7:45 am () Patient Instructions/Handouts: After Radial Heart Catheterization (GEN) Activity/Diet/Wound Care/Special Instructions: Do Not submerge right wrist in water. No tubs, pools, dishes, etc. You may shower and pat area dry. You may remove dressing in 24 hours and leave open to air NO flexing, pulling, lifting, pushing with right wrist. Go to nearest ER if you notice any bleeding or swelling at puncture site Regarding metformin: Restart taking metformin from 09/08 because of recent exposure to dye Discharge Disposition: HOME SELF-CARE
== END 2023-09-06 13:10 | disposition home or self-care (01) ==
LOC: SUPCPDRO 10:43 → EC 10:43 → 6NMEDSUR 11:37
PROVIDERS: ADMIT Internal Medicine; ATTEND Internal Medicine
DX: I25.110 Atherosclerotic heart disease of native coronary artery with unstable angina pectoris (principal); E11.9 Type 2 diabetes mellitus without complications; E78.5 Hyperlipidemia, unspecified; E03.9 Hypothyroidism, unspecified; Z79.890 Hormone replacement therapy; Z79.84 Long term (current) use of oral hypoglycemic drugs; Z79.899 Other long term (current) drug therapy
CPT/HCPCS: 96366 ×3; 96376; 96365; 99285; 93306; 80061; 80053; 82565; 83735; 84484; 85025; 85610; 85730 ×2; 83036; 71046; G0378 ×3; C1769 ×2; C1887; C1894; C1725 ×2; C1874; J2250; J2001; J1644 ×3; Q9967; J3010; J2305; 76937; 92978; 93458

== ENCOUNTER → 2023-09-04 | Outpatient (CLI) | payer MEDICARE ==
--- NOTE | 2023-09-04 11:53 | CA ---
Stress Echo Report Chuck Hope Age: 67 Gender: M : 1955 Exam Date: 09/04/2023 09:53 Exam Location: [place] Stress Ht (in): 69 Wt (lb): 193 Ordering Physician: Mitchell Benz MD Referring Physician: MITCHELL BENZ,, Information Systems Professor: Mabel Sanchez RDCS Technologist Procedure CPT: Indication: I20.9 ANGINA PECTORIS, UNSPECIFIED ICD-9 Codes: Rhythm: Patient History: Chest pain Cardiac Medications: Medications in past 24 hours: Contrast: Stress Results Protocol: Mitul Total dose(mL): Exercise Duration (min:sec): 4:[address] Depression (mm): Angina Score: Zuniga Score: METS: 6.8 Resting HR: 77 Resting BP: 129 / 80 Peak HR: 147 Peak BP: 158 / 68 Max Predicted HR: 154 95 % Max Predicted HR Target HR: 131 Double Product: 42147 Stress Summary: BP Response: Reason for Termination: Reached target heart rate or work-load, Atypical chest discomfort Cardiac Symptoms: Chest pain and nausea ECG Analysis Resting ECG: Stress ECG: Arrhythmia: Echo Analysis Resting Echo: Peak Echo Analysis: MEASUREMENTS (Male/Female) Normal Values CONCLUSIONS Patient underwent exercise stress echo with a Mitul protocol treadmill stress test. Patient exercised into Stage 2 for a total of 4 minutes and 54 second reaching a total of 6.8 METS. Patient's maximum heart rate was 147 which represented 95% age- predicted maximum heart rate. With stress patient had some chest pain and shortness of breath. Stress EKG portion: At baseline patient's EKG showed normal sinus rhythm, normal axis, no significant ST or T wave abnormalities, occasional PACs. At peak exercise, EKG showed ST elevation in aVR, diffuse [address] depressions in the inferior lateral leads. Stress echo portion: 2-D echocardiogram was performed in the parasternal long, personal short, apical 2 and apical four-chamber views at rest, peak exercise and in recovery. At baseline, echocardiogram showed left ventricular ejection fraction 50-55% without wall motion abnormalities. With peak exercise, echocardiogram shows increased left ventricular dilation, mid to apical anterior hypokinesis consistent with abnormal response Conclusions: 1. Abnormal stress EKG and stress echo portion with inducible anterior ischemia as well as ST elevation in aVR 2. Fair exercise capacity. 3. Chest pain and shortness breath noted with exertion. Clinical correlation recommended Dr. Domenic Burt DO (Electronically Signed) Final Date: 04 September 2023 11:52
== END | disposition home or self-care (01) ==
LOC: RADNMMAIN 09:08
PROVIDERS: ATTEND Family Medicine
DX: R94.31 Abnormal electrocardiogram [ECG] [EKG] (principal); I20.9 Angina pectoris, unspecified; R07.9 Chest pain, unspecified; R06.02 Shortness of breath
CPT/HCPCS: 93351

== ENCOUNTER → 2024-09-17 | Outpatient (CLI) | payer MEDICARE ==
--- NOTE | 2024-09-17 17:55 | MR ---
EXAMINATION TYPE: MR pelvis wo/w con for rectal mass DATE OF EXAM: 09/17/2024 4:10 PM COMPARISON: 09/07/2019 CLINICAL INDICATION: Male, 68 years old with history of C19 MALIGNANT NEOPLASM OF RECTOSIGMOID JUNCTI ON; [facility], malignant neoplasm of rectosigmoid junction TECHNIQUE: Triplane multisequence imaging was performed of the pelvis. IV Contrast: 9 mL Gadobutrol FINDINGS: Reproductive: Prostate: Unremarkable. Seminal vesicle's: Unremarkable. Testes: Unremarkable. Bladder: Unremarkable. Bowel:Nonrectal mass protocol limits evaluation for staging. Colonic masses seen at the sigmoid rectal junction along the anterior aspect of the colonic wall ext ending approximately 5.0 cm in caudocranial dimension extending from 10:00 to 3:00. Peritoneum: No free fluid. Lymph nodes: There is at least one prominent lymph node series 901 image 106 measuring 6 mm suggestiv e of local metastatic disease. Vasculature: Unremarkable. Musculoskeletal: Bone marrow signal is within normal signal intensity. Abdominal wall/soft tissues: Unremarkable. IMPRESSION: Anterior rectal sigmoid junction mass extending up to 5.0 cm in caudocranial dimension extending from T10 to 3 o'clock with at least one suspicious lymph nodes are local metastatic disease. Nonrectal ma ss protocol limits evaluation for staging. [facility], , 09/17/2024 5:53 PM
== END | disposition home or self-care (01) ==
LOC: RADMRIMAIN 15:00
PROVIDERS: ATTEND Internal Medicine Gastroenterology
DX: C19 Malignant neoplasm of rectosigmoid junction (principal); C79.51 Secondary malignant neoplasm of bone
CPT/HCPCS: 72197; A9585

== ENCOUNTER → 2024-11-04 | Outpatient (CLI) | payer MEDICARE ==
[2024-11-04 16:19] LABS: African American GFR (CKD) 79 (>60 ml/min/1.73 sqM); Blood Urea Nitrogen 15 mg/dL (9-20); Non-African American GFR(CKD) 68 (>60 ml/min/1.73 sqM)
--- NOTE | 2024-11-04 19:15 | CT ---
EXAMINATION TYPE: CT chest w con DATE OF EXAM: 11/04/2024 5:15 PM COMPARISON: None. CLINICAL INDICATION: Male, 69 years old with history of C19 MALIGNANT NEOPLASM OF RECTOSIGMOID JUNCTI ON; PHH, r/o mets, hx of rectosigmoid Ca TECHNIQUE: Multiple axial images were obtained through the chest. Sagittal and coronal reformats were created for review. MIP was performed on a separate workstation. Contrast used:100ml mL of Isovue 300 with IV Contrast (None if empty) CT DLP: 471.3 mGycm, Automated exposure control for dose reduction was used. FINDINGS: LUNGS/ PLEURA: The lung parenchyma appears unremarkable. No suspicious pulmonary nodule or pulmonary mass. AIRWAY: Patent and unremarkable. HEART: Size within normal limits. MEDIASTINUM: No gross evidence of adenopathy. VASCULATURE: No aortic aneurysm. MUSCULOSKELETAL: No acute osseous abnormalities SOFT TISSUES/LYMPH NODES: Unremarkable. LOWER NECK: No significant findings. UPPER ABDOMEN: No significant acute findings. Decrease hematocrit level attenuation suggesting steato sis. IMPRESSION: No evidence of metastatic disease in the chest. [facility], , 11/04/2024 7:13 PM
== END | disposition home or self-care (01) ==
LOC: RADCTMAIN 15:40
PROVIDERS: ATTEND Internal Medicine Hematology & Oncology
DX: Z03.89 Encounter for observation for other suspected diseases and conditions ruled out (principal); C19 Malignant neoplasm of rectosigmoid junction; Z85.048 Personal history of other malignant neoplasm of rectum, rectosigmoid junction, and anus
CPT/HCPCS: 82565; 84520; 71260; 36415; Q9967

== ENCOUNTER 2024-12-21 03:27 | Emergency (ER) | payer MEDICARE ==
--- NOTE | 2024-12-21 04:15 | ED ---
Abdominal Pain HPI - General Chief Complaint: Abdominal Pain Stated Complaint: Abd pain Time Seen by Provider: 12/21/24 03:44 Source: patient Mode of arrival: ambulatory Limitations: no limitations - History of Present Illness Initial Comments: This patient is a 69-year-old man who has history of colon cancer and presents with complaint that he feels like he is constipated. He is describing cramping and bloating diffuse abdominal pain going back to Friday. He states that was the last time he had a bowel movement. Symptoms were initially mild but have become more severe until tonight he felt he should have evaluation. Patient has not noted fever or chills. He has had nausea, no vomiting. Patient does not recall passing gas in the past day or so. He has not had any pain into the scrotum or testicles. No swelling in the groin. States that he recently was started on "chemo pills," no surgery related to the colon cancer. MD Complaint: abdominal pain -: days(s) Location: diffuse Migration to: no migration Severity: moderate Quality: cramping, fullness Consistency: constant Improves With: nothing Worsens With: nothing Associated Symptoms: nausea, constipation - Related Data Home Medications Medication Instructions Recorded Confirmed Levothyroxine Sodium [Synthroid] 75 mcg PO DAILY 08/10/15 08/24/24 Empagliflozin [Jardiance] 25 mg PO DAILY 09/04/23 08/24/24 Gabapentin [Neurontin] 100 mg PO BID PRN 09/04/23 08/24/24 Glimepiride [Amaryl] 1 mg PO BID 09/04/23 08/24/24 metFORMIN HCL 1,000 mg PO BID 09/04/23 08/24/24 Atorvastatin [Lipitor] 40 mg PO DAILY 08/24/24 08/24/24 Clopidogrel [Plavix] 75 mg PO DAILY 08/24/24 08/24/24 Ketorolac 0.5% Ophth Soln [Acular 1 drop LEFT EYE QID 08/24/24 08/24/24 0.5%] Triamcinolone 0.025% Cream 1 applic TOPICAL DAILY PRN 08/24/24 08/24/24 [Kenalog 0.025% Cream] fluocinolone acetonide oiL 5 drops BOTH EARS BID PRN 08/24/24 08/24/24 [Dermotic] Previous Rx's Medication Instructions Recorded Aspirin 81 mg PO DAILY #90 tab 09/06/23 Allergies Allergy/AdvReac Type Severity Reaction Status Date / Time No Known Allergies Allergy Verified 12/21/24 03:40 Review of Systems ROS Statement: Those systems with pertinent positive or pertinent negative responses have been documented in the HPI. ROS Other: All systems not noted in ROS Statement are negative. Constitutional: Denies: fever, chills, weakness Respiratory: Denies: cough, dyspnea Cardiovascular: Denies: chest pain, palpitations, edema Gastrointestinal: Reports: abdominal pain, nausea, constipation. Denies: vomiting, diarrhea, hematemesis, melena, hematochezia Genitourinary: Denies: dysuria, hematuria, testicular pain, testicular mass Musculoskeletal: Denies: back pain Skin: Denies: rash Neurological: Denies: headache, weakness Past Medical History Past Medical History: Diabetes Mellitus, Hyperlipidemia, Skin Disorder, Thyroid Disorder Additional Past Medical History / Comment(s): "dry skin" ; Colon CA History of Any Multi-Drug Resistant Organisms: MRSA Date of last positivie culture/infection: ?2004 MDRO Source:: rt side of abdomen Past Surgical History: Cholecystectomy Additional Past Surgical History / Comment(s): cyst removed from side of abdomen, nasal surgery Past Anesthesia/Blood Transfusion Reactions: Postoperative Nausea & Vomiting (PONV) Additional Past Anesthesia/Blood Transfusion Reaction / Comment(s): ponv after last colonscopy Past Psychological History: No Psychological Hx Reported Smoking Status: Never smoker Past Alcohol Use History: Occasional Past Drug Use History: None Reported - Past Family History Mother Family Medical History: Cancer Father Family Medical History: Cancer General Exam Limitations: no limitations General appearance: alert, in no apparent distress Head exam: Present: atraumatic, normocephalic Eye exam: Present: normal appearance. Absent: scleral icterus, conjunctival injection Neck exam: Present: normal inspection Respiratory exam: Present: normal lung sounds bilaterally. Absent: respiratory distress, wheezes, rales, rhonchi, stridor, accessory muscle use Cardiovascular Exam: Present: regular rate, normal rhythm, normal heart sounds. Absent: systolic murmur, diastolic murmur, rubs, gallop GI/Abdominal exam: Present: soft, distended, tenderness. Absent: guarding, rebound, rigid, mass, pulsatile mass, hernia Extremities exam: Present: normal inspection, normal capillary refill. Absent: pedal edema, calf tenderness Back exam: Present: normal inspection. Absent: CVA tenderness (R), CVA tenderness (L) Neurological exam: Present: alert Skin exam: Present: warm, dry, intact, normal color. Absent: rash Course Vital Signs 12/21/24 12/21/24 12/21/24 03:36 04:22 05:15 Temperature 97.4 F L Pulse Rate 92 90 88 Respiratory 18 18 18 Rate Blood Pressure 119/88 127/99 156/87 O2 Sat by Pulse 98 98 97 Oximetry 12/21/24 12/21/24 07:23 08:07 Temperature 98 F Pulse Rate 87 62 Respiratory 16 18 Rate Blood Pressure 131/86 132/78 O2 Sat by Pulse 97 98 Oximetry Medical Decision Making - Medical Decision Making The patient had CT scan of the abdomen and pelvis that I interpreted as negative for acute bowel obstruction, negative for free air. Was pt. sent in by a medical professional or institution (, PA, INSTRUMENT TECHNICIAN HELPER, urgent care, hospital, or fci...) When possible be specific @ -[No] Did you speak to anyone other than the patient for history (EMS, parent, family, police, friend...)? What history was obtained from this source @ -[No] Did you review nursing and triage notes (agree or disagree)? Why? @ -[I reviewed and agree with nursing and triage notes] Were old charts reviewed (outside hosp., previous admission, EMS record, old EKG, old radiological studies, urgent care reports/EKG's, fci records)? Report findings @ -[Yes, old charts were reviewed] Differential Diagnosis (chest pain, altered mental status, abdominal pain women, abdominal pain men, vaginal bleeding, weakness, fever, dyspnea, syncope, headache, dizziness, GI bleed, back pain, seizure, CVA, palpatations, mental he alth, musculoskeletal)? @ -[Differential Abdominal Pain Men: Appendicitis, cholecystitis, diverticulosis, ischemic bowel, pancreatitis, hepatitis, UTI, gastroenteritis, AAA, incarcerated hernia, bowel obstruction, constipation, inflammatory bowel, hepatitis, peptic ulcer disease, splenic infarction, perforated viscus, testicular torsion, this is not meant to be an all-inclusive list EKG interpreted by me (3pts min.). @ -[As above] X-rays interpreted by me (1pt min.). @ -[None done] CT interpreted by me (1pt min.). @ -[I interpreted as above U/S interpreted by me (1pt. min.). @ -[None done] What testing was considered but not performed or refused? (CT, X-rays, U/S, labs)? Why? @ -[None] What meds were considered but not given or refused? Why? @ -[None] Did you discuss the management of the patient with other professionals (professionals i.e. , PA, INSTRUMENT TECHNICIAN HELPER, lab, RT, psych nurse, long term care social worker, waste water plant operator, teacher, police officer, case management director)? Give summary @ -[No] Was smoking cessation discussed for >3mins.? @ -[No] Was critical care preformed (if so, how long)? @ -[No] Were there social determinants of health that impacted care today? How? (Homelessness, low income, unemployed, alcoholism, drug addiction, transportation, low edu. Level, literacy, decrease access to med. care, retirement, rehab)? @ -[No] Was there de-escalation of care discussed even if they declined (Discuss DNR or withdrawal of care, Hospice)? DNR status @ -[No] What co-morbidities impacted this encounter? (DM, HTN, Smoking, COPD, CAD, Cancer, CVA, ARF, Chemo, Hep., AIDS, mental health diagnosis, sleep apnea, morbid obesity)? @ -[Colon cancer Was patient admitted / discharged? Hospital course, mention meds given and route, prescriptions, significant lab abnormalities, going to OR and other pertinent info. @ -[Patient is 69-year-old man presenting with abdominal pain and concern that he has not had normal bowel movements. The patient's physical exam not concerning for acute surgical condition. The patient's CT scan similarly not revealing acute surgical condition. The patient will try using course of GoLytely. Discussed appropriate further care and follow-up as well as return parameters. Stressed that he needs to return for reevaluation if there is any worsening or if he has not improved with the GoLytely. Undiagnosed new problem with uncertain prognosis? @ -[No] Drug Therapy requiring intensive monitoring for toxicity (Heparin, Nitro, Insulin, Cardizem)? @ -[No] Were any procedures done? @ -[No] Diagnosis/symptom? @ -[Acute abdominal pain Constipation Acute, or Chronic, or Acute on Chronic? @ -[Acute Uncomplicated (without systemic symptoms) or Complicated (systemic symptoms)? @ -[Uncomplicated Side effects of treatment? @ -[No] Exacerbation, Progression, or Severe Exacerbation? @ -[No] Poses a threat to life or bodily function? How? (Chest pain, USA, NH, pneumonia, PE, COPD, DKA, ARF, appy, cholecystitis, CVA, Diverticulitis, Homicidal, Suicidal, threat to staff... and all critical care pts) @ -[No] All treatments are based on ideal body weight as in ED triage - Lab Data Result diagrams: 12/21/24 03:48 12/21/24 03:48 Lab Results 12/21/24 12/21/24 12/21/24 Range/Units 03:48 03:48 03:48 WBC 6.71 (4.50-10.00) 10*3/uL RBC 5.57 (4.40-5.60) 10*6/uL Hgb 15.4 (13.0-17.0) g/dL Hct 46.5 (39.6-50.0) % MCV 83.5 (80.0-97.0) fL MCH 27.6 (27.0-32.0) pg MCHC 33.1 (32.0-37.0) g/dL Plt Count 297 (140-440) 10*3/uL MPV 9.8 (9.5-12.2) fL Immature Gran % (Auto) 0.3 % Neutrophils % 39.2 % Lymphocytes % 33.2 % Monocytes % 20.3 % Eosinophils % 6.3 % Basophils % 0.7 % Immature Gran # 0.02 (0.00-0.04) 10*3/uL Neutrophils # 2.63 (1.80-7.70) 10*3/uL Lymphocytes # 2.23 (0.90-5.00) 10*3/uL Monocytes # 1.36 H (0.20-1.00) 10*3/uL Eosinophils # 0.42 H (0.04-0.35) 10*3/uL Basophils # 0.05 (0.00-0.10) 10*3/uL Sodium 137 (137-145) mmol/L Potassium 4.2 (3.5-5.1) mmol/L Chloride 104 (98-107) mmol/L Carbon Dioxide 23 (22-30) mmol/L Anion Gap 10 mmol/L BUN 19 (9-20) mg/dL Creatinine 1.02 (0.66-1.25) mg/dL Est GFR (CKD-EPI)AfAm 87 (>60 ml/min/1.73 sqM) Est GFR (CKD-EPI)NonAf 75 (>60 ml/min/1.73 sqM) Glucose 212 H (74-99) mg/dL Plasma Lactic Acid Herminio 1.4 (0.7-2.0) mmol/L Calcium 8.9 (8.4-10.2) mg/dL Total Bilirubin 0.9 (0.2-1.3) mg/dL AST 25 (17-59) U/L ALT 22 (4-49) U/L Alkaline Phosphatase 50 (38-126) U/L Total Protein 6.4 (6.3-8.2) g/dL Albumin 3.7 (3.5-5.0) g/dL Amylase 59 (30-110) U/L Lipase 378 H (23-300) U/L Disposition Clinical Impression: Constipation Disposition: HOME SELF-CARE Condition: Good Instructions (If sedation given, give patient instructions): Constipation (DC) Is patient prescribed a controlled substance at d/c from ED?: No Referrals: Mtichell Benz MD [Primary Care Provider] - 1-2 days
[2024-12-21] MEDS: MORPHINE SULFATE 4 MG/ML SYRINGE IV STA ×2 (04:23→05:54)
[2024-12-21] MEDS: ONDANSETRON 4 MG/2 ML VIAL IVP STA (04:31)
[2024-12-21 04:38] LABS: Basophils # (A) 0.05 10*3/uL (0.00-0.10); Basophils % (A) 0.7 %; Eosinophils # (A) 0.42 10*3/uL (0.04-0.35); Eosinophils % (A) 6.3 %; HCT 46.5 % (39.6-50.0); HGB 15.4 g/dL (13.0-17.0); Lymphocytes # (A) 2.23 10*3/uL (0.90-5.00); Lymphocytes % (A) 33.2 %; MCH 27.6 pg (27.0-32.0); MCHC 33.1 g/dL (32.0-37.0); MCV 83.5 fL (80.0-97.0); Mean Platelet Volume 9.8 fL (9.5-12.2); Monocytes # (A) 1.36 10*3/uL (0.20-1.00); Monocytes % (A) 20.3 %; Neutrophils # (A) 2.63 10*3/uL (1.80-7.70); Neutrophils % (A) 39.2 %; Platelet Count 297 10*3/uL (140-440); RBC 5.57 10*6/uL (4.40-5.60); RDW 14.1 % (11.5-14.5); WBC 6.71 10*3/uL (4.50-10.00)
[2024-12-21 04:47] LABS: ALT 22 U/L (4-49); African American GFR (CKD) 87 (>60 ml/min/1.73 sqM); Albumin 3.7 g/dL (3.5-5.0); Amylase 59 U/L (30-110); Anion Gap 10 mmol/L; Blood Urea Nitrogen 19 mg/dL (9-20); Calcium 8.9 mg/dL (8.4-10.2); Carbon Dioxide 23 mmol/L (22-30); Chloride 104 mmol/L (98-107); Glucose 212 mg/dL (74-99); Lipase 378 U/L (23-300); Non-African American GFR(CKD) 75 (>60 ml/min/1.73 sqM); Sodium 137 mmol/L (137-145); Total Bilirubin 0.9 mg/dL (0.2-1.3); Total Protein 6.4 g/dL (6.3-8.2)
[2024-12-21 04:54] LABS: AST 25 U/L (17-59); Alkaline Phosphatase 50 U/L (38-126); Potassium 4.2 mmol/L (3.5-5.1)
--- NOTE | 2024-12-21 06:35 | CT ---
EXAMINATION TYPE: CT abdomen pelvis w con DATE OF EXAM: 12/21/2024 COMPARISON: Prior CT September 07, 2024 CLINICAL INDICATION: Male, 69 years old with history of mid abdominal pain for 2 days with nausea, , TECHNIQUE: CT scan of the abdomen and pelvis is performed with IV Contrast, patient injected with 100 mL of Isov ue 300., (none if empty) Oral contrast used: (none if empty) Automated exposure control for dose reduction was used. FINDINGS: LUNG BASES: No significant abnormality is appreciated. LIVER/GB: Cholecystectomy clips are redemonstrated. PANCREAS: No significant abnormality is seen. SPLEEN: No significant abnormality is seen. ADRENALS: No significant abnormality is seen. KIDNEYS: No significant abnormality is seen. BOWEL: No abnormal small or large bowel dilatation. Normal-appearing appendix redemonstrated. PROSTATE/SEMINAL VESICLES: No gross abnormality seen. LYMPH NODES: No greater than 1cm abdominal or pelvic lymph nodes are appreciated. OSSEOUS STRUCTURES: Persistent [id number] disc space narrowing at the lumbosacral junction. OTHER: Mild calcified plaque of the aorta. Moderate-sized fat containing left inguinal hernia redemon strated IMPRESSION: No bowel obstruction. No significant new/acute finding is seen to account for patient's clinical symptoms. [facility], , 12/21/2024 6:33 AM
[2024-12-21] MEDS: SODIUM CHLORIDE 0.9% 1,000 ML IV ONE (06:55)
[2024-12-21] MEDS: MAGNESIUM CITRATE 296 ML BOTTLE PO ONE (06:55)
[2024-12-21] MEDS: PEG 3350 (236 GM/BTL) + LYTES 4,000 ML BOTTLE PO ONE (07:42)
[2024-12-21 08:10] VITALS: BP 132/78; PULSE 62; RESP 18; TEMP 98
== END 2024-12-21 08:11 | disposition home or self-care (01) ==
LOC: EC 03:27
DX: K59.00 Constipation, unspecified (principal); Z85.038 Personal history of other malignant neoplasm of large intestine
CPT/HCPCS: 36415; 80053; 82150; 83605; 83690; 85025; 74177; 99285; 96374; 96375; 96361; J2270; J2405; Q9967